=== PATIENT | female | born 1980 | race African-American/Black ===

== ENCOUNTER 2017-06-26 20:58 | Emergency (ER) | payer BC ==
--- NOTE | 2017-06-26 23:29 | RADIOLOGY REPORT (SQ) ---
EXAM DESCRIPTION: CHEST PA/LAT COMPLETED DATE/TIME: 06/26/2017 11:23 pm REASON FOR STUDY: right sided chest pain COMPARISON: 07/05/2014. EXAM PARAMETERS: NUMBER OF VIEWS: two views TECHNIQUE: Digital Frontal and Lateral radiographic views of the chest acquired. RADIATION DOSE: NA LIMITATIONS: none FINDINGS: LUNGS AND PLEURA: No opacities, masses or pneumothorax. No pleural effusion. MEDIASTINUM AND HILAR STRUCTURES: No masses or contour abnormalities. HEART AND VASCULAR STRUCTURES: Heart normal size. No evidence for failure. BONES: No acute findings. HARDWARE: None in the chest. OTHER: No other significant finding. IMPRESSION: NO SIGNIFICANT RADIOGRAPHIC FINDING IN THE CHEST. TECHNICAL DOCUMENTATION: JOB ID: [id number] [employer]- All Rights Reserved
--- NOTE | 2017-06-27 00:21 | ER Document Report ---
ED General - General Chief Complaint: Shoulder Pain Stated Complaint: SHOULDER PAIN Time Seen by Provider: 06/26/17 22:59 Mode of Arrival: Ambulatory Information source: Patient Notes: Patient is a 37-year-old black female comes in emergency room complaining of right shoulder pain. Also complaining of right anterior chest pain. Patient states that she started with some pain in her right shoulder for 5 days ago. Patient states that on Monday she started having some right arm pain she went to sleep and woke up right arm down to her fingers was swollen and painful. She has some anterior right-sided shoulder pain as well. Monday she went to anglican and friend apply hot compresses and she went home took Aleve and ibuprofen and went to bed when she woke up the pain was gone and the swelling was down. Patient also relates a story that her mother at age 52 with an [place]. 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 Patient does not know what her cholesterols. TRAVEL OUTSIDE OF THE [place] IN LAST 30 DAYS: No - HPI Patient complains to provider of: Right shoulder pain, right arm swelling and pain Onset: Other - 2 days ago increasing discomfort yesterday. Onset/Duration: Gradual, Better Quality of pain: Cramping, Throbbing Severity: Moderate Pain Level: 3 Associated symptoms: denies: None, Allergy/hay fever, Body/muscle aches, Chest pain, Chills, Nonproductive cough, Productive cough, Diarrhea, Drooling, Earache , Fever, Headache, Hoarseness, Hurts to breath, Leg swelling, Nausea, Vomiting, Rhinnorhea, Sinus pain/drainage, Shortness of breath, Slow to respond, Sore throat, Sweating, Weakness, Other Exacerbated by: Other - Nothing Relieved by: Other - Heat Similar symptoms previously: Yes Recently seen / treated by doctor: No - Related Data Allergies/Adverse Reactions: acetaminophen [From NyQuil] Allergy (Intermediate, Verified 06/26/17 21:01) brompheniramine maleate [From DayQuil Allergy 12-HR] Allergy (Intermediate, Verified 06/26/17 21:01) dextromethorphan HBr [From NyQuil] Allergy (Intermediate, Verified 06/26/17 21: 01) doxylamine [From NyQuil] Allergy (Intermediate, Verified 06/26/17 21:01) ibuprofen [Ibuprofen] Allergy (Intermediate, Verified 06/26/17 21:01) phenylpropanolamine HCl [From DayQuil Allergy 12-HR] Allergy (Intermediate, Verified 06/26/17 21:01) pseudoephedrine HCl [From NyQuil] Allergy (Intermediate, Verified 06/26/17 21:01 ) Past Medical History - General Information source: Patient - Social History Smoking Status: Former Smoker Cigarette use (# per day): No Chew tobacco use (# tins/day): No Smoking Education Provided: No Frequency of alcohol use: None Drug Abuse: None 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 Lives with: Family Family History: Reviewed & Not Pertinent, Arthritis, CAD, Hyperlipidemia, Hypertension, Malignancy Neurological Medical History: Reports: Hx Migraine Endocrine Medical History: Reports: Hx Hyperthyroidism Musculoskeltal Medical History: Reports Hx Musculoskeletal Trauma Past Surgical History: Reports: Hx Section - x3, Hx Tonsillectomy, Hx Tubal Ligation - Bilateral - Immunizations Immunizations up to date: No Hx Diphtheria, Pertussis, Tetanus Vaccination: No Review of Systems - Review of Systems Constitutional: No symptoms reported EENT: No symptoms reported Cardiovascular: Chest pain Respiratory: No symptoms reported Gastrointestinal: No symptoms reported Genitourinary: No symptoms reported Female Genitourinary: No symptoms reported Musculoskeletal: Joint pain, Joint swelling, Muscle stiffness Skin: No symptoms reported Hematologic/Lymphatic: No symptoms reported Neurological/Psychological: No symptoms reported -: Yes All other systems reviewed and negative Physical Exam - Vital signs Vitals: Temp Pulse Resp BP Pulse Ox 98.3 F 72 18 141/65 H 97 06/26/17 21:07 06/26/17 21:07 06/26/17 21:07 06/26/17 21:07 06/26/17 21:07 Interpretation: Hypertensive - General General appearance: Appears well, Alert - HEENT Head: Normocephalic, Atraumatic Eyes: Normal Nasal: Normal Mouth/Lips: Normal Mucous membranes: Normal Pharynx: Normal Neck: Normal - Respiratory Respiratory status: No respiratory distress Chest status: Nontender Breath sounds: Normal. No: Decreased air movement, Nonproductive cough, Productive cough, Rales, Rhonchi, Stridor, Wheezing, Other Chest palpation: Normal. No: Flail segment, [place] frothy sputum, Purulent sputum , Subcutaneous emphysema, Sucking chest wound, Tender, Ecchymosis, Wounds, Other - Cardiovascular Rhythm: Regular Heart sounds: Normal auscultation Murmur: No - Abdominal Inspection: Normal Distension: No distension Bowel sounds: Normal Tenderness: Nontender Organomegaly: No organomegaly - Extremities General lower extremity: Normal inspection, Normal ROM Shoulder: Tender, Other - Examination patient's right shoulder show some mildly reproducible tenderness around the rotator cuff area. There is little limited are not barely noticeable reduction in strength with against resistance in all directions. There is no overt swelling edema noted to the arm forearm or fingers at this time. Patient has good pulses distally at the ulnar radius good cap refill in the nailbeds of the right hand. She also has good brachial pulse. Arm: Normal Elbow: Normal Forearm: Normal Wrist: Normal Hand: Normal - Neurological Neuro grossly intact: Yes Cognition: Normal Orientation: AAOx4 [place] Coma Scale Eye Opening: Spontaneous [place] Coma Scale Verbal: Oriented [place] Coma Scale Motor: Obeys Commands [place] Coma Scale Total: 15 Speech: Normal - Skin Skin Temperature: Warm Skin Moisture: Dry Skin Color: Normal, [place] Course - Vital Signs Vital signs: Temp Pulse Resp BP Pulse Ox 98.3 F 72 18 141/65 H 97 06/26/17 21:07 06/26/17 21:07 06/26/17 21:07 06/26/17 21:07 06/26/17 21:07 - Laboratory Result Diagrams: 06/27/17 00:10 06/27/17 00:10 Laboratory results interpreted by me: 06/27/17 00:10 Hgb 9.6 L Hct 30.1 L MCV 74 L MCH 23.7 L MCHC 31.8 L RDW 16.7 H - Diagnostic Test Radiology reviewed: Reports reviewed - X-rays were negative of the chest. - EKG Interpretation by Me EKG shows normal: Sinus rhythm Rate: Normal Rhythm: NSR - Transfer of Care Notes: 06/27/17 01:36 Patient stay was totally uneventful. I have had a long discussion with patient about needing follow-up outpatient especially given the fact her father had a heart attack at an early age. At this time she is presenting with really atypical cardiac presentation this was more for a make sure type of a workup that I done tonight. I think patient really strained her right arm or shoulder and over the course of the last few days and not sure what the swelling was but her d-dimer was definitely negative. 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 Anyhow at this point I talked her about [facility] and how they operate in that if she does not have insurance this may be an opportunity for her to get medical care. Discharge - Discharge Clinical Impression: Atypical chest pain Right shoulder strain Qualifiers: Encounter type: initial encounter Qualified Code(s): S46.911A - Strain of unspecified muscle, fascia and tendon at shoulder and upper arm level, right arm , initial encounter Condition: Good Disposition: HOME, SELF-CARE Additional Instructions: Chest Pain of Unclear Cause The exact cause of your chest pain isn't clear. Fortunately, there is no evidence of a dangerous medical condition. Further testing may be required to find the source of the pain. Most often, we find that this pain is coming from the chest wall -- the muscles or rib joints in the chest. But chest pain can come from the lung and lung lining, the esophagus, the heart valves or heart lining, and even the stomach or gallbladder. Rest. Eat lightly until the pain is gone. We may prescribe medicine for pain and inflammation. You should call the physician immediately if the pain radiates to the shoulder, jaw or arms; if you start to run a fever or develop a cough; or if you develop shortness of breath, or other new or alarming symptoms. Shoulder Injury You have injured your shoulder. This usually results from stretching or tearing of the tendons during trauma. Time and protection are required in order to heal properly. Many injuries are quite disabling, and should be taken seriously. Initial treatment includes cold packs and a sling to rest the shoulder. The physician has assessed the seriousness of your injury, and has outlined a treatment plan. Understand that this treatment may change, depending on how you progress. If a re-examination was recommended, it is important that you follow up as instructed. Some shoulder injuries (such as partial tear of the rotator cuff) are only suspected after you've failed to improve. Call us if there's severe pain, numbness, or loss of function. As we discussed it is highly important that you establish with a medical doctor for the following. Should you have any concerns or problems if the discomfort returns and or radiates to anywhere else return to ER for a recheck again. Forms: Elevated Blood Pressure, Return to Work
[2017-06-27 00:31] LABS: ABSOLUTE BASOPHILS # (AUTO) 0.1 10^3/uL (0.0-0.2); ABSOLUTE EOSINOPHILS # (AUTO) 0.3 10^3/uL (0.0-0.6); ABSOLUTE LYMPHOCYTES (AUTO) 2.2 10^3/uL (0.5-4.7); ABSOLUTE MONOCYTES (AUTO) 0.4 10^3/uL (0.1-1.4); ABSOLUTE NEUT (AUTO) 3.1 10^3/uL (1.7-8.2); BASOPHILS % (AUTO) 1.3 % (0-2); EOSINOPHILS % (AUTO) 4.7 % (0-6); HEMATOCRIT 30.1 % (36.0-47.0); HEMOGLOBIN 9.6 g/dL (12.0-15.5); HGB HCT DIFFERENCE -1.3; LYMPHOCYTES % (AUTO) 36.1 % (13-45); MEAN CORPUSCULAR HEMOGLOBIN 23.7 pg (27.0-33.4); MEAN CORPUSCULAR HGB CONC 31.8 g/dL (32.0-36.0); MEAN CORPUSCULAR VOLUME 74 fl (80-97); MONOCYTES % (AUTO) 6.8 % (3-13); RED BLOOD COUNT 4.05 10^6/uL (3.72-5.28); RED CELL DISTRIBUTION WIDTH 16.7 % (11.5-14.0); SEGMENTED NEUTROPHILS % (AUTO) 51.1 % (42-78)
[2017-06-27 00:49] LABS: ALANINE AMINOTRANSFERASE 36 U/L (9-52); ALBUMIN 4.2 g/dL (3.5-5.0); ALKALINE PHOSPHATASE 58 U/L (38-126); ANION GAP 10 (5-19); ASPARTATE AMINO TRANSFERASE 21 U/L (14-36); BILIRUBIN,DIRECT 0.3 mg/dL (0.0-0.4); BILIRUBIN,TOTAL 0.3 mg/dL (0.2-1.3); BLOOD UREA NITROGEN 16 mg/dL (7-20); CALCIUM 9.2 mg/dL (8.4-10.2); CARBON DIOXIDE 25 mmol/L (22-30); CHLORIDE 103 mmol/L (98-107); CREATININE RESULT 0.78 mg/dL (0.52-1.25); GLUCOSE 97 mg/dL (75-110); SODIUM 138.2 mmol/L (137-145); TOTAL PROTEIN 7.4 g/dL (6.3-8.2)
[2017-06-27 01:57] VITALS: BP 139/80
--- NOTE | 2017-06-27 12:47 | EKG REPORT ---
SEVERITY:- NORMAL ECG - SINUS RHYTHM : Confirmed by: Zahra Zaragoza 27-Jun-2017 12:46:55
== END 2017-06-27 02:00 | disposition home or self-care (01) ==
LOC: ER 20:58
DX: S46.911A Strain of unspecified muscle, fascia and tendon at shoulder and upper arm level, right arm, initial encounter (principal); R07.89 Other chest pain; X58.XXXA Exposure to other specified factors, initial encounter; Z98.51 Tubal ligation status; Z88.6 Allergy status to analgesic agent
CPT/HCPCS: 36415; 71020; 80053; 84484; 85025; 85379; 93005; 93010; 99285

== ENCOUNTER 2018-06-18 15:08 | Emergency (ER) | payer BC ==
[2018-06-18] MEDS ORDERED: ACETAMINOPHEN 325 MG TABLET PO ONE (16:29)
[2018-06-18] MEDS ORDERED: ONDANSETRON 4 MG TAB.RAPDIS PO ONE (16:30)
--- NOTE | 2018-06-18 16:37 | ER Document Report ---
ED General - General Chief Complaint: Chest Pain Stated Complaint: chest pain Time Seen by Provider: 06/18/18 16:11 Notes: Patient is a 38-year-old female who comes emergency department for chief complaint of chest pain. She states that she has been having intermittent mild chest pain in the middle of her chest for the past several days, she actually has had this frequently in the past, she states that over the past few days she has had lack of sleep, poor diet, and she thinks this is related. She has also been having intermittent mild headaches. She denies nausea or vomiting, fever or chills, shortness of breath, cough. She denies any daily medications. She is a former smoker. She states her mom had a heart attack in her 50s and as result she wants to be checked out. TRAVEL OUTSIDE OF THE [place] IN LAST 30 DAYS: No - Related Data Allergies/Adverse Reactions: acetaminophen [From NyQuil] Allergy (Intermediate, Verified 06/26/17 21:01) brompheniramine maleate [From DayQuil Allergy 12-HR] Allergy (Intermediate, Verified 06/26/17 21:01) dextromethorphan HBr [From NyQuil] Allergy (Intermediate, Verified 06/26/17 21: 01) doxylamine [From NyQuil] Allergy (Intermediate, Verified 06/26/17 21:01) ibuprofen [Ibuprofen] Allergy (Intermediate, Verified 06/26/17 21:01) phenylpropanolamine HCl [From DayQuil Allergy 12-HR] Allergy (Intermediate, Verified 06/26/17 21:01) pseudoephedrine HCl [From NyQuil] Allergy (Intermediate, Verified 06/26/17 21:01 ) Past Medical History - General Information source: Patient - Social History Smoking Status: Former Smoker Frequency of alcohol use: weekends Drug Abuse: None Lives with: Family Family History: Reviewed & Not Pertinent, Arthritis, CAD, Hyperlipidemia, Hypertension, Malignancy Patient has suicidal ideation: No Patient has homicidal ideation: No Neurological Medical History: Reports: Hx Migraine Endocrine Medical History: Reports: Hx Hyperthyroidism Renal/ Medical History: Denies: Hx Peritoneal Dialysis Musculoskeletal Medical History: Reports Hx Musculoskeletal Trauma Past Surgical History: Reports: Hx Section - x3, Hx Tonsillectomy, Hx Tubal Ligation - Immunizations Immunizations up to date: No Hx Diphtheria, Pertussis, Tetanus Vaccination: No Review of Systems - Review of Systems Constitutional: See HPI EENT: No symptoms reported Cardiovascular: See HPI Respiratory: No symptoms reported Gastrointestinal: No symptoms reported Genitourinary: No symptoms reported Female Genitourinary: No symptoms reported Musculoskeletal: No symptoms reported Skin: No symptoms reported Hematologic/Lymphatic: No symptoms reported Neurological/Psychological: No symptoms reported Physical Exam - Vital signs Vitals: Temp Pulse Resp BP Pulse Ox 98.3 F 67 12 123/70 100 06/18/18 15:33 06/18/18 15:33 06/18/18 15:33 06/18/18 15:33 06/18/18 15:33 - Notes Notes: GENERAL: Alert, interacts well. No acute distress. HEAD: Normocephalic, atraumatic. EYES: Pupils equal, round, and reactive to light. Extraocular movements intact. ENT: Oral mucosa moist, tongue midline. Oropharynx unremarkable. Airway patent. Nares patent, no nasal septal hematoma, TM's intact. NECK: Full range of motion. Supple. Trachea midline. LUNGS: Clear to auscultation bilaterally, no wheezes, rales, or rhonchi. No respiratory distress. HEART: Regular rate and rhythm. No murmur ABDOMEN: Soft, non-tender. Non-distended. Bowel sounds present in all 4 quadrants. GENITOURINARY: Deferred EXTREMITIES: Moves all 4 extremities spontaneously. No edema, normal radial and dorsalis pedis pulses bilaterally. No cyanosis. BACK: no cervical, thoracic, lumbar midline tenderness. No saddle anesthesia, normal distal neurovascular exam. NEUROLOGICAL: Alert and oriented x3. Normal speech. [cranial nerves II through XII grossly intact]. PSYCH: Normal affect, normal mood. SKIN: Warm, dry, normal turgor. No rashes or lesions noted. Course - Re-evaluation Re-evalutation: Patient declines aspirin, states that she decided she would never take this because her mom had a severe allergy, she has never personally taken it but she again declines. EKG sinus rhythm no T wave inversions or ST segment changes in consecutive leads. Chest x-ray is unremarkable. CBC shows chronic microcytic anemia which is similar to prior, otherwise unremarkable. Chemistry unremarkable. HCG is negative. Troponin is negative despite symptoms going on for several days. Patient attributes her symptoms to stress, lack of sleep, eating regularly, not drink enough fluids. No current chest pain on my evaluation. She has had similar symptoms for a long time. Discussed different options. Heart score is less than 4, patient will be discharged with work-release if she can rest, cardiology follow-up. Patient states understanding and agreement with this plan , states understanding of return precautions. - Vital Signs Vital signs: Temp Pulse Resp BP Pulse Ox 98.7 F 62 18 134/67 H 100 06/18/18 18:36 06/18/18 18:36 06/18/18 18:36 06/18/18 18:36 06/18/18 18:36 - Laboratory Result Diagrams: 06/18/18 16:50 06/18/18 16:50 Laboratory results interpreted by me: 06/18/18 16:50 Hgb 9.5 L Hct 30.0 L MCV 73 L MCH 22.9 L MCHC 31.6 L RDW 17.4 H Discharge - Discharge Clinical Impression: Chest pain Qualifiers: Chest pain type: unspecified Qualified Code(s): R07.9 - Chest pain, unspecified Condition: Stable Disposition: HOME, SELF-CARE Additional Instructions: The exact cause of your chest pain is uncertain. Your workup does not show any concerning abnormalities at this time other than slowly worsening anemia. I recommend that you resume your [place] vitamins. You can also increase iron in your diet. Improve rest and hydration. Follow-up with the cardiology referral for additional evaluation and management. Return for any concerning symptoms including severe pain, passing out, difficulty breathing, fever, or any other concerning or worsening symptoms. Forms: Return to Work Referrals: STACY PALACIO MD [ACTIVE STAFF] - Follow up as needed
--- NOTE | 2018-06-18 16:49 | RADIOLOGY REPORT (SQ) ---
EXAM DESCRIPTION: CHEST SINGLE VIEW COMPLETED DATE/TIME: 06/18/2018 4:40 pm REASON FOR STUDY: chest pain COMPARISON: 06/26/2017 EXAM PARAMETERS: NUMBER OF VIEWS: One view. TECHNIQUE: Single frontal radiographic view of the chest acquired. RADIATION DOSE: NA LIMITATIONS: None. FINDINGS: LUNGS AND PLEURA: No opacities, masses or pneumothorax. No pleural effusion. MEDIASTINUM AND HILAR STRUCTURES: No masses. Contour normal. HEART AND VASCULAR STRUCTURES: Heart normal in size. Normal vasculature. BONES: No acute findings. HARDWARE: None in the chest. OTHER: No other significant finding. IMPRESSION: 1. No significant interval changes since the prior examination dated 06/26/2017. No [place] findings. TECHNICAL DOCUMENTATION: JOB ID: [id number] [employer]- All Rights Reserved Reading location - IP/workstation name: [email or web address]
[2018-06-18 17:09] LABS: ABSOLUTE BASOPHILS # (AUTO) 0.1 10^3/uL (0.0-0.2); ABSOLUTE EOSINOPHILS # (AUTO) 0.3 10^3/uL (0.0-0.6); ABSOLUTE MONOCYTES (AUTO) 0.5 10^3/uL (0.1-1.4); ABSOLUTE NEUT (AUTO) 5.5 10^3/uL (1.7-8.2); BASOPHILS % (AUTO) 0.9 % (0-2); EOSINOPHILS % (AUTO) 3.8 % (0-6); HEMOGLOBIN 9.5 g/dL (12.0-15.5); MEAN CORPUSCULAR HEMOGLOBIN 22.9 pg (27.0-33.4); MEAN CORPUSCULAR HGB CONC 31.6 g/dL (32.0-36.0); MEAN CORPUSCULAR VOLUME 73 fl (80-97); MONOCYTES % (AUTO) 5.9 % (3-13); PLATELET COUNT 340 10^3/uL (150-450); RED BLOOD COUNT 4.14 10^6/uL (3.72-5.28); RED CELL DISTRIBUTION WIDTH 17.4 % (11.5-14.0); SEGMENTED NEUTROPHILS % (AUTO) 65.4 % (42-78); TOTAL CELLS COUNTED % (AUTO) 100 %; WHITE BLOOD COUNT 8.4 10^3/uL (4.0-10.5)
[2018-06-18 17:25] LABS: ALANINE AMINOTRANSFERASE 16 U/L (9-52); ALBUMIN 4.1 g/dL (3.5-5.0); ALKALINE PHOSPHATASE 64 U/L (38-126); ANION GAP 12 (5-19); ASPARTATE AMINO TRANSFERASE 21 U/L (14-36); BILIRUBIN,DIRECT 0.2 mg/dL (0.0-0.4); BILIRUBIN,TOTAL 0.2 mg/dL (0.2-1.3); BLOOD UREA NITROGEN 17 mg/dL (7-20); CALCIUM 9.1 mg/dL (8.4-10.2); CARBON DIOXIDE 27 mmol/L (22-30); CHLORIDE 102 mmol/L (98-107); GLUCOSE 87 mg/dL (75-110); POTASSIUM 3.9 mmol/L (3.6-5.0); SODIUM 140.9 mmol/L (137-145); TOTAL PROTEIN 7.3 g/dL (6.3-8.2)
--- NOTE | 2018-06-18 18:38 | EKG REPORT ---
SEVERITY:- NORMAL ECG - SINUS RHYTHM : Confirmed by: Zahra Zaragoza 18-Jun-2018 18:36:49
[2018-06-18 18:40] VITALS: BP 134/67
== END 2018-06-18 18:38 | disposition home or self-care (01) ==
LOC: ER 15:08
DX: R07.9 Chest pain, unspecified (principal); R51 Headache; Z87.891 Personal history of nicotine dependence
CPT/HCPCS: 93005; 99285; 36415; 84703; 85025; 80053; 84484; 71045; 93010; S0119

== ENCOUNTER 2018-08-07 20:58 | Emergency (ER) | payer BC ==
[2018-08-07] MEDS ORDERED: ASPIRIN 81 MG TABLET, CHEWABLE PO ONE (21:30)
--- NOTE | 2018-08-07 22:01 | RADIOLOGY REPORT (SQ) ---
EXAM DESCRIPTION: XR CHEST 1 VIEW COMPLETED DATE/TME: 08/07/2018 21:30 CLINICAL HISTORY: 38 years, Female, CP COMPARISON: 06/18/2018 chest x-ray NUMBER OF VIEWS: 1 TECHNIQUE: Chest LIMITATIONS: None. FINDINGS: Heart size is normal. Lungs are clear. No pneumothorax IMPRESSION: Negative chest copyright 2010 [employer]- All Rights Reserved
[2018-08-07 22:15] LABS: ABSOLUTE BASOPHILS # (AUTO) 0.1 10^3/uL (0.0-0.2); ABSOLUTE EOSINOPHILS # (AUTO) 0.4 10^3/uL (0.0-0.6); ABSOLUTE LYMPHOCYTES (AUTO) 2.1 10^3/uL (0.5-4.7); ABSOLUTE MONOCYTES (AUTO) 0.5 10^3/uL (0.1-1.4); ABSOLUTE NEUT (AUTO) 4.5 10^3/uL (1.7-8.2); BASOPHILS % (AUTO) 1.8 % (0-2); EOSINOPHILS % (AUTO) 4.7 % (0-6); HEMATOCRIT 32.9 % (36.0-47.0); HEMOGLOBIN 10.5 g/dL (12.0-15.5); LYMPHOCYTES % (AUTO) 28.1 % (13-45); MEAN CORPUSCULAR HEMOGLOBIN 23.9 pg (27.0-33.4); MEAN CORPUSCULAR VOLUME 75 fl (80-97); MONOCYTES % (AUTO) 6.7 % (3-13); PLATELET COUNT 327 10^3/uL (150-450); RED CELL DISTRIBUTION WIDTH 18.1 % (11.5-14.0); SEGMENTED NEUTROPHILS % (AUTO) 58.7 % (42-78); TOTAL CELLS COUNTED % (AUTO) 100 %; WHITE BLOOD COUNT 7.6 10^3/uL (4.0-10.5)
[2018-08-07 22:40] LABS: ALANINE AMINOTRANSFERASE 29 U/L (9-52); ALBUMIN 4.4 g/dL (3.5-5.0); ALKALINE PHOSPHATASE 67 U/L (38-126); ANION GAP 5 (5-19); ASPARTATE AMINO TRANSFERASE 26 U/L (14-36); BILIRUBIN,DIRECT 0.1 mg/dL (0.0-0.4); BILIRUBIN,TOTAL 0.1 mg/dL (0.2-1.3); BLOOD UREA NITROGEN 16 mg/dL (7-20); CALCIUM 9.4 mg/dL (8.4-10.2); CARBON DIOXIDE 28 mmol/L (22-30); CHLORIDE 104 mmol/L (98-107); CREATINE KINASE 171 U/L (30-135); GLUCOSE 87 mg/dL (75-110); POTASSIUM 4.1 mmol/L (3.6-5.0); SODIUM 137.1 mmol/L (137-145); TOTAL PROTEIN 7.3 g/dL (6.3-8.2)
[2018-08-07 22:56] LABS: CREATINE KINASE MB 1.23 ng/mL (<4.55)
[2018-08-07 23:04] LABS: TROPONIN I < 0.012 ng/mL
[2018-08-08] MEDS ORDERED: MORPHINE SULFATE 10 MG/ML INJ IV ONE ×2 (00:03→02:27)
[2018-08-08] MEDS ORDERED: ONDANSETRON HCL INJ/PF 4 MG/2 ML SDV IV ONE (00:04)
--- NOTE | 2018-08-08 00:08 | ER Document Report ---
ED General - General Chief Complaint: Chest Pain Stated Complaint: CHEST PAIN Time Seen by Provider: 08/07/18 23:40 Primary Care Provider: [facility] [NO LOCAL MD] - Follow up in 3-5 days Mode of Arrival: Ambulatory Information source: Patient, Relative, [facility] Records Notes: 38-year-old female with no reported past medical history presents with complaint of chest pain that started 7 hours prior to arrival while the patient was at work. Patient describes the pain is constant, stabbing. Patient states pain is worse with movement of her arm, movement of her neck. She denies any chest trauma. She has had prior similar symptoms for many years but states they have never been able to figure out what it is. Patient denies any associated lightheadedness, diaphoresis, nausea, vomiting, recent illnesses including cough congestion. Patient denies history of PE, DVT. She does report that her mother from a heart attack at the age of 52. TRAVEL OUTSIDE OF THE [place] IN LAST 30 DAYS: No - HPI Onset: This afternoon Onset/Duration: Gradual, Persistent, Worse Quality of pain: Stabbing Severity: Moderate Associated symptoms: Chest pain. denies: Nonproductive cough, Productive cough, Diarrhea, Fever, Headache, Leg swelling, Nausea, Vomiting, Shortness of breath, Sweating, Weakness Exacerbated by: Movement Relieved by: Denies Similar symptoms previously: Yes Recently seen / treated by doctor: No - Related Data Allergies/Adverse Reactions: acetaminophen [From NyQuil] Allergy (Intermediate, Verified 06/26/17 21:01) brompheniramine maleate [From DayQuil Allergy 12-HR] Allergy (Intermediate, Verified 06/26/17 21:01) dextromethorphan HBr [From NyQuil] Allergy (Intermediate, Verified 06/26/17 21:01) doxylamine [From NyQuil] Allergy (Intermediate, Verified 06/26/17 21:01) ibuprofen [Ibuprofen] Allergy (Intermediate, Verified 06/26/17 21:01) phenylpropanolamine HCl [From DayQuil Allergy 12-HR] Allergy (Intermediate, Verified 06/26/17 21:01) pseudoephedrine HCl [From NyQuil] Allergy (Intermediate, Verified 06/26/17 21:01) Past Medical History - General Information source: Patient - Social History Smoking Status: Never Smoker Frequency of alcohol use: Occasional Drug Abuse: None Lives with: Family Family History: Reviewed & Not Pertinent, Arthritis, CAD, Hyperlipidemia, Hypertension, Malignancy Patient has suicidal ideation: No Patient has homicidal ideation: No - Past Medical History Cardiac Medical History: Reports: Hx Hypertension - high blood pressure while Neurological Medical History: Reports: Hx Migraine Endocrine Medical History: Reports: Hx Hyperthyroidism Renal/ Medical History: Denies: Hx Peritoneal Dialysis Musculoskeletal Medical History: Reports Hx Musculoskeletal Trauma Past Surgical History: Reports: Hx Section - x3, Hx Tonsillectomy, Hx Tubal Ligation - Immunizations Immunizations up to date: No Hx Diphtheria, Pertussis, Tetanus Vaccination: No Review of Systems - Review of Systems Notes: REVIEW OF SYSTEMS: CONSTITUTIONAL : Denies fever, chills, or sweats. Denies recent illness. Denies weight loss, recent hospitalizations. EENT: Denies visual changes, eye pain. Denies sore throat, oral lesions, difficulty swallowing. CARDIOVASCULAR: Denies palpitations. Denies lower extremity edema. RESPIRATORY: Denies cough. Denies shortness of breath, wheezing. GASTROINTESTINAL: Denies abdominal pain or distention. Denies nausea, vomiting, or diarrhea. Denies blood in vomitus, stools, or per rectum. Denies black, tarry stools. Denies constipation. GENITOURINARY: Denies difficulty urinating, painful urination, frequency, blood in urine, or vaginal discharge. MUSCULOSKELETAL: Denies back or neck pain or stiffness. Denies joint pain or swelling. SKIN: Denies rash, lesions or sores. HEMATOLOGIC : Denies easy bruising or bleeding. LYMPHATIC: Denies swollen glands. NEUROLOGICAL: Denies confusion or altered mental status. Denies loss of consciousness. Denies dizziness or lightheadedness. Denies headache. Denies weakness or paralysis. Denies problems difficulty with ambulation, slurred speech. Denies sensory loss, numbness, or tingling. Denies seizures. PSYCHIATRIC: Denies anxiety or stress. Denies depression, suicidal ideation, or homicidal ideation. Denies visual or auditory hallucinations. Physical Exam - Vital signs Vitals: Temp Pulse Resp BP Pulse Ox 98.6 F 72 20 136/69 H 100 08/07/18 21:52 08/07/18 21:52 08/07/18 21:52 08/07/18 21:52 08/07/18 21:52 - Notes Notes: PHYSICAL EXAMINATION: GENERAL: Well-appearing, well-nourished and in no acute distress. HEAD: Atraumatic, normocephalic. EYES: Pupils equal round and reactive to light, extraocular movements intact, conjunctiva are normal. ENT: Nares patent, oropharynx clear without exudates. Moist mucous membranes. NECK: Normal range of motion, supple without lymphadenopathy LUNGS: Breath sounds clear to auscultation bilaterally and equal. No wheezes rales or rhonchi. HEART: Regular rate and rhythm without murmurs ABDOMEN: Soft, nontender, nondistended abdomen. No guarding, no rebound. No masses appreciated. Female : deferred Musculoskeletal: Normal range of motion, no pitting or edema. No cyanosis. NEUROLOGICAL: Cranial nerves grossly intact. Normal speech, normal gait. Normal sensory, motor exams PSYCH: Normal mood, normal affect. SKIN: Warm, Dry, normal turgor, no rashes or lesions noted. Course - Re-evaluation Re-evalutation: Temp Pulse Resp BP Pulse Ox 98.6 F 72 20 124/79 100 08/07/18 21:52 08/07/18 21:52 08/07/18 23:01 08/07/18 23:01 08/07/18 23:01 Laboratory 08/07/18 08/07/18 08/07/18 22:03 22:03 22:03 WBC 7.6 RBC 4.40 Hgb 10.5 L Hct 32.9 L MCV 75 L MCH 23.9 L MCHC 32.0 RDW 18.1 H Plt Count 327 Seg Neutrophils % 58.7 Lymphocytes % 28.1 Monocytes % 6.7 Eosinophils % 4.7 Basophils % 1.8 Absolute Neutrophils 4.5 Absolute Lymphocytes 2.1 Absolute Monocytes 0.5 Absolute Eosinophils 0.4 Absolute Basophils 0.1 Sodium 137.1 Potassium 4.1 Chloride 104 Carbon Dioxide 28 Anion Gap 5 BUN 16 Creatinine 0.77 Est GFR ( Amer) > 60 Est GFR (Non-Af Amer) > 60 Glucose 87 Calcium 9.4 Total Bilirubin 0.1 L Direct Bilirubin 0.1 Neonat Total Bilirubin Not Reportable Neonat Direct Bilirubin Not Reportable Neonat Indirect Bili Not Reportable AST 26 ALT 29 Alkaline Phosphatase 67 Creatine Kinase 171 H CK-MB (CK-2) Troponin I Total Protein 7.3 Albumin 4.4 Serum HCG, Qual NEGATIVE 08/07/18 08/08/18 22:03 01:15 WBC RBC Hgb Hct MCV MCH MCHC RDW Plt Count Seg Neutrophils % Lymphocytes % Monocytes % Eosinophils % Basophils % Absolute Neutrophils Absolute Lymphocytes Absolute Monocytes Absolute Eosinophils Absolute Basophils Sodium Potassium Chloride Carbon Dioxide Anion Gap BUN Creatinine Est GFR ( Amer) Est GFR (Non-Af Amer) Glucose Calcium Total Bilirubin Direct Bilirubin Neonat Total Bilirubin Neonat Direct Bilirubin Neonat Indirect Bili AST ALT Alkaline Phosphatase Creatine Kinase CK-MB (CK-2) 1.23 Troponin I < 0.012 < 0.012 Total Protein Albumin Serum HCG, Qual Chest X-Ray 08/07/18 21:30 IMPRESSION: Negative chest copyright 2011 [employer]- All Rights Reserved 08/08/18 00:07 38-year-old female presents with 7 hours of substernal chest pain that she describes as stabbing. Vital signs reviewed upon arrival and within normal li mits. Patient does not appear toxic or dehydrated. She is in no acute distress. Previous medical records and nursing notes reviewed. Patient was placed on night monitor and EKG was obtained which showed the patient to be in normal sinus rhythm at a rate of 75. Patient has a normal QRS and QTC of 76 and 411. CBC, CMP, cardiac enzymes including delta troponin are within normal limits. Chest x-ray shows no acute process. Patient did receive morphine, Zofran and on reevaluation reports improvement of pain. Patient is PERC negative. Patient was not administered aspirin due to her report that she is concerned that she is allergic to aspirin since her mother was allergic to aspirin. I did explain to her the value of taking aspirin but she continues to decline. HEART Score: History-0 ECG-0 Age-0 Risk Factors-1 Troponin-0 Total: 1 If HEART score is = 3 AND both troponin measurements are normal, the 30 day risk of a major adverse cardiac event (all-cause mortality, myocardial infarction or need for coronary revascularization) is < 1% (Sensitivity 100%, NPV 100%). Chest pain in a patient without evidence of cardiac or other serious etiology on workup today. I discussed with patient that, based on their age, risk factors and emergency department testing today, the likelihood that their symptoms are related to a heart attack is very low (estimated risk of heart attack or over the next 30 days of less than 1%). The patient demonstrates decision making capacity and has verbalized an understanding of these risks to me. Based on this, the patient has chosen to follow-up as an outpatient. Usual chest pain return precautions reviewed. The patient states understanding and agreement with this plan. Patient was evaluated and treated as appropriate for the patient's presenting symptoms and complaint, with consideration of any critical or life threatening conditions that may be associated with their obtained history and exam as noted above. All results were discussed with patient Patient provided the opportunity to ask questions, and express concerns. Patient was educated on treatments based on their presumed diagnosis as noted above. At this time we will discharge the patient with return precautions and follow-up recommendations. Verbal discharge instructions given a the bedside. Medication warnings reviewed. Patient is in agreement with this plan and has verbalized understanding of return precautions. After careful consideration I feel that that patient can be safely discharged from the emergency department, they were advised to followup with a primary care physician in 2-3 days. Dictation on this chart was performed using voice recognition software and may result in unintended grammatical, spelling, syntax or errors. 08/08/18 02:45 08/08/18 02:47 08/08/18 02:47 - Vital Signs Vital signs: Temp Pulse Resp BP Pulse Ox 98.6 F 72 18 137/80 H 99 08/07/18 21:52 08/07/18 21:52 08/08/18 02:01 08/08/18 02:01 08/08/18 02:01 - Laboratory Result Diagrams: 08/07/18 22:03 08/07/18 22:03 Laboratory results interpreted by me: 08/07/18 08/07/18 22:03 22:03 Hgb 10.5 L Hct 32.9 L MCV 75 L MCH 23.9 L RDW 18.1 H Total Bilirubin 0.1 L Creatine Kinase 171 H - Diagnostic Test Radiology reviewed: Image reviewed, Reports reviewed - EKG Interpretation by Me EKG shows normal: Sinus rhythm Rate: Normal Rhythm: NSR When compared to previous EKG there are: No significant change - QRS 76. QTc 411. No evidence of ST elevation or depression. Discharge - Discharge Clinical Impression: Chest wall pain Chest pain Qualifiers: Chest pain type: unspecified Qualified Code(s): R07.9 - Chest pain, unspecified Condition: Good Disposition: HOME, SELF-CARE Instructions: Chest Pain of Unclear Cause ([facility]), Chest Wall Pain ([facility]) Additional Instructions: You were seen today for chest pain. The exact cause of your pain is unclear. However, based on your cardiac enzyme testing, chest x-ray, and EKG it does not appear that it is from an immediately life-threatening cause at this time. Although your testing here is normal is critical that you follow-up with your [facility] physician for continued evaluation of this chest pain and possible stress testing. I recommended you see your physician within the next 24-48 hours to be evaluated for consideration of a stress test. Please return to emergency department immediately if you have worsening of your chest pain, shortness of breath, vomiting, become unable to exert yourself due to pain or difficulty breathing, you pass out, or have any pain that radiates into your arms, jaw, or back. Please also return if you have any additional symptoms that are concerning to you. Forms: Elevated Blood Pressure, Return to Work [facility]: [facility] [NO [facility]AL MD] - Follow up in 3-5 days
[2018-08-08 02:28] VITALS: BP 137/80
--- NOTE | 2018-08-08 07:29 | EKG REPORT ---
SEVERITY:- NORMAL ECG - SINUS RHYTHM : Confirmed by: Joseline Gupta MD 08-Aug-2018 07:28:46
== END 2018-08-08 02:54 | disposition home or self-care (01) ==
LOC: ER 20:58
DX: R07.89 Other chest pain (principal); R07.9 Chest pain, unspecified; I10 Essential (primary) hypertension
CPT/HCPCS: 93005; 96376; 99285; 96374; 96375; 36415; 82553; 82550; 84703; 85025; 80053; 84484; 71045; 93010; J2270; J2405

== ENCOUNTER 2019-09-23 19:55 | Emergency (ER) | payer BC ==
--- NOTE | 2019-09-23 20:37 | ER Document Report ---
ED Medical Screen (RME) - General Chief Complaint: Chest Pain Stated Complaint: CHEST PAIN Time Seen by Provider: 09/23/19 20:23 Mode of Arrival: Ambulatory Information source: Patient Notes: Otherwise healthy 39-year-old female presenting to the emergency department chief complaint of chest pain. Patient reports chest pain began this morning. Patient reports it feels like a sharp stabbing pain in the middle of her chest. She states pain is worse when she is working or breathing in cold air. She denies any nausea, vomiting, shortness of breath. Heart sounds S1-S2 present, no ectopy noted. Lung sounds clear and equal bilaterally. I have greeted and performed a rapid initial assessment of this patient. A comprehensive ED assessment and evaluation of the patient, analysis of test results and completion of the medical decision making process will be conducted by additional ED providers. I have specifically instructed the patient or family members with the patient to immediately return to any nursing staff should anything change in the patient's condition or with their chief complaint. TRAVEL OUTSIDE OF THE [place] IN LAST 30 DAYS: No - Related Data Allergies/Adverse Reactions: acetaminophen [From NyQuil] Allergy (Intermediate, Verified 09/23/19 20:15) brompheniramine maleate [From DayQuil Allergy 12-HR] Allergy (Intermediate, Verified 09/23/19 20:15) dextromethorphan HBr [From NyQuil] Allergy (Intermediate, Verified 09/23/19 20:15) doxylamine [From NyQuil] Allergy (Intermediate, Verified 09/23/19 20:15) ibuprofen [Ibuprofen] Allergy (Intermediate, Verified 09/23/19 20:15) phenylpropanolamine HCl [From DayQuil Allergy 12-HR] Allergy (Intermediate, Verified 09/23/19 20:15) pseudoephedrine HCl [From NyQuil] Allergy (Intermediate, Verified 09/23/19 20:15) Home Medications: Iron Past Medical History - Social History Chew tobacco use (# tins/day): No Frequency of alcohol use: Rare Drug Abuse: None Family history: CAD - MOTHER HAD SUDDEN CARDIAC @ AGE 51 - Past Medical History Cardiac Medical History: Reports: Hx Hypertension - high blood pressure while Neurological Medical History: Reports: Hx Migraine Endocrine Medical History: Reports: Hx Hyperthyroidism Renal/ Medical History: Denies: Hx Peritoneal Dialysis Musculoskeltal Medical History: Reports Hx Musculoskeletal Trauma Past Surgical History: Reports: Hx Section - x3, Hx Tonsillectomy, Hx Tubal Ligation - Immunizations Immunizations up to date: No Hx Diphtheria, Pertussis, Tetanus Vaccination: No Physical Exam - Vital signs Vitals: Temp Pulse Resp BP Pulse Ox 98.9 F 83 16 121/76 99 09/23/19 20:05 09/23/19 20:05 09/23/19 20:05 09/23/19 20:05 09/23/19 20:05 Course - Vital Signs Vital signs: Temp Pulse Resp BP Pulse Ox 98.9 F 83 16 121/76 99 09/23/19 20:05 09/23/19 20:05 09/23/19 20:05 09/23/19 20:05 09/23/19 20:05
--- NOTE | 2019-09-23 21:11 | RADIOLOGY REPORT (SQ) ---
PA and lateral chest radiograph: 09/23/2019 8:10 PM CDT History: 39-year old patient with chest pain. Comparison: Chest radiograph performed 08/07/2018 Findings: The cardiomediastinal silhouette is normal in size. No pneumothorax is seen. No discrete pleural effusion is apparent. No acute airspace opacities are seen. Impression: No acute airspace opacities are seen.
--- NOTE | 2019-09-23 21:20 | ER Document Report ---
ED Cardiac - General Chief Complaint: Chest Pain Stated Complaint: CHEST PAIN Time Seen by Provider: 09/23/19 20:23 Primary Care Provider: RADHA CABALLERO MD [ACTIVE STAFF] - 09/25/19 Mode of Arrival: Ambulatory Notes: Patient is a 39-year-old female that comes emergency department for chief comp laint of chest pain. She states that this started earlier this morning, she states she will intermittently feel a sharp stabbing pain in the middle the chest. She states that she notices this much more when she is going in and out of cold air, she states that he is doing this constantly at work. When the pain is present it feels like it is harder to take a deep breath but she denies specific shortness of breath. She states she is also starting to get congested and she is wondering if she is getting a chest cold. She denies cough, fever, nausea, vomiting, dizziness, lower extremity swelling, or any other complaints. She has a past medical history of anemia and she takes iron for this, she has had 3 C-sections and a tubal ligation. She states that her mom from cardiac arrest at the age of 51. She has never had testing of her heart. TRAVEL OUTSIDE OF THE [place] IN LAST 30 DAYS: No - Related Data Allergies/Adverse Reactions: acetaminophen [From NyQuil] Allergy (Intermediate, Verified 09/23/19 20:15) brompheniramine maleate [From DayQuil Allergy 12-HR] Allergy (Intermediate, Verified 09/23/19 20:15) dextromethorphan HBr [From NyQuil] Allergy (Intermediate, Verified 09/23/19 20:15) doxylamine [From NyQuil] Allergy (Intermediate, Verified 09/23/19 20:15) ibuprofen [Ibuprofen] Allergy (Intermediate, Verified 09/23/19 20:15) phenylpropanolamine HCl [From DayQuil Allergy 12-HR] Allergy (Intermediate, Verified 09/23/19 20:15) pseudoephedrine HCl [From NyQuil] Allergy (Intermediate, Verified 09/23/19 20:15) Home Medications: Iron Past Medical History - General Information source: Patient - Social History Smoking Status: Never Smoker Chew tobacco use (# tins/day): No Frequency of alcohol use: Rare Drug Abuse: None Lives with: Family Family History: Reviewed & Not Pertinent, Arthritis, CAD, Hyperlipidemia, Hypertension, Malignancy Patient has suicidal ideation: No Patient has homicidal ideation: No - Past Medical History Cardiac Medical History: Reports: Hx Hypertension - high blood pressure while Neurological Medical History: Reports: Hx Migraine Endocrine Medical History: Reports: Hx Hyperthyroidism Renal/ Medical History: Denies: Hx Peritoneal Dialysis Musculoskeletal Medical History: Reports Hx Musculoskeletal Trauma Past Surgical History: Reports: Hx Section - x3, Hx Tonsillectomy, Hx Tubal Ligation - Immunizations Immunizations up to date: No Hx Diphtheria, Pertussis, Tetanus Vaccination: No Review of Systems - Review of Systems Constitutional: See HPI EENT: See HPI Cardiovascular: See HPI Respiratory: See HPI Gastrointestinal: No symptoms reported Genitourinary: No symptoms reported Female Genitourinary: No symptoms reported Musculoskeletal: No symptoms reported Skin: No symptoms reported Hematologic/Lymphatic: No symptoms reported Neurological/Psychological: No symptoms reported Physical Exam - Vital signs Vitals: Temp Pulse Resp BP Pulse Ox 98.9 F 83 16 121/76 99 09/23/19 20:05 09/23/19 20:05 09/23/19 20:05 09/23/19 20:05 09/23/19 20:05 - Notes Notes: GENERAL: Alert, interacts well. No acute distress. HEAD: Normocephalic, atraumatic. EYES: Pupils equal, round, and reactive to light. Extraocular movements intact. ENT: Oral mucosa moist, tongue midline. Oropharynx unremarkable. Airway patent. Minimal nasal congestion. LUNGS: Clear to auscultation bilaterally, no wheezes, rales, or rhonchi. No respiratory distress. Mild pleuritic pain with deep breaths. Otherwise unremarkable. HEART: Regular rate and rhythm. No murmur ABDOMEN: Soft, non-tender. Non-distended. EXTREMITIES: Moves all 4 extremities spontaneously. No edema, normal radial and dorsalis pedis pulses bilaterally. No cyanosis. BACK: no cervical, thoracic, lumbar midline tenderness. No saddle anesthesia, normal distal neurovascular exam. Moves all extremities in full range of motion. NEUROLOGICAL: Alert and oriented x3. Normal speech. Cranial nerves II through XII grossly intact. PSYCH: Normal affect, normal mood. SKIN: Warm, dry, normal turgor. No rashes or lesions noted. Course - Re-evaluation Re-evalutation: Patient with mild congestion, pain with deep breathing and intermittent, very atypical symptoms. Heart score is less than 3. Troponin negative despite being over 12 hours since symptoms began. D-dimer negative, EKG unremarkable, remaining work-up unremarkable, chest x-ray normal. Discussed with patient. She is very pleased with this work-up. I do suspect pleurisy which is mild based on her associated symptoms and her pleuritic pain. Discussed options. Treated with dexamethasone. Discussed follow-up and return precautions at length, referred to cardiology because of her family history for additional testing and close follow-up. Patient states appreciation and agreement. Stable at time of discharge. - Vital Signs Vital signs: Temp Pulse Resp BP Pulse Ox 98.5 F 83 20 124/76 100 09/23/19 23:01 09/23/19 20:05 09/23/19 23:01 09/23/19 23:01 09/23/19 23:01 - Laboratory Result Diagrams: 09/23/19 21:57 09/23/19 21:57 Laboratory results interpreted by me: 09/23/19 21:57 Hgb 11.2 L Hct 33.7 L - EKG Interpretation by Me Additional EKG results interpreted by me: EKG shows sinus rhythm at a rate of 80, QTc 406, normal axis. No T wave inversions or ST segment changes in consecutive leads. Small amount of artifact. Discharge - Discharge Clinical Impression: Sinus congestion Chest pain Qualifiers: Chest pain type: unspecified Qualified Code(s): R07.9 - Chest pain, unspecified Condition: Stable Disposition: HOME, SELF-CARE Additional Instructions: Your work-up at this time does not show any concerning findings. I suspect you have pleurisy, inflammation in the lining of your lungs, this is frequently viral. You may be developing a viral illness. You have been treated for this, rest, drink plenty of fluids, you can take [id number] medications for your symptoms in addition to this. Symptoms should simply resolve with time. Because of your family history you have been referred to cardiology for additional evaluation and management. Call the referral for close follow-up. Return if you worsen including spiking fever, passing out, difficulty breathing, severe worsening pain, or any other concerning symptoms. Forms: Return to Work Referrals: RADHA CABALLERO MD [ACTIVE STAFF] - 09/25/19
[2019-09-23] MEDS ORDERED: ASPIRIN 325 MG TABLET PO ONE (21:28)
[2019-09-23 22:15] LABS: ABSOLUTE BASOPHILS # (AUTO) 0.1 10^3/uL (0.0-0.2); ABSOLUTE EOSINOPHILS # (AUTO) 0.2 10^3/uL (0.0-0.6); ABSOLUTE LYMPHOCYTES (AUTO) 1.8 10^3/uL (0.5-4.7); ABSOLUTE MONOCYTES (AUTO) 0.4 10^3/uL (0.1-1.4); ABSOLUTE NEUT (AUTO) 2.8 10^3/uL (1.7-8.2); BASOPHILS % (AUTO) 1.1 % (0-2); EOSINOPHILS % (AUTO) 3.9 % (0-6); HEMATOCRIT 33.7 % (36.0-47.0); HEMOGLOBIN 11.2 g/dL (12.0-15.5); MEAN CORPUSCULAR HEMOGLOBIN 28.1 pg (27.0-33.4); MEAN CORPUSCULAR HGB CONC 33.3 g/dL (32.0-36.0); MEAN CORPUSCULAR VOLUME 85 fl (80-97); MONOCYTES % (AUTO) 7.9 % (3-13); PLATELET COUNT 267 10^3/uL (150-450); RED BLOOD COUNT 3.99 10^6/uL (3.72-5.28); RED CELL DISTRIBUTION WIDTH 13.9 % (11.5-14.0); SEGMENTED NEUTROPHILS % (AUTO) 53.1 % (42-78); TOTAL CELLS COUNTED % (AUTO) 100 %; WHITE BLOOD COUNT 5.3 10^3/uL (4.0-10.5)
[2019-09-23 22:34] LABS: ALBUMIN 3.9 g/dL (3.5-5.0); ALKALINE PHOSPHATASE 47 U/L (38-126); ANION GAP 9 (5-19); ASPARTATE AMINO TRANSFERASE 20 U/L (14-36); BILIRUBIN,DIRECT 0.3 mg/dL (0.0-0.4); BILIRUBIN,TOTAL 0.4 mg/dL (0.2-1.3); BLOOD UREA NITROGEN 16 mg/dL (7-20); CALCIUM 9.1 mg/dL (8.4-10.2); CARBON DIOXIDE 25 mmol/L (22-30); CHLORIDE 104 mmol/L (98-107); GLUCOSE 101 mg/dL (75-110); POTASSIUM 3.7 mmol/L (3.6-5.0); TOTAL PROTEIN 7.1 g/dL (6.3-8.2)
[2019-09-23] MEDS ORDERED: DEXAMETHASONE SOD PHOS INJ 10 MG/1 ML VIAL IM ONE (22:57)
[2019-09-23 23:22] VITALS: BP 124/76
--- NOTE | 2019-09-24 12:04 | EKG REPORT ---
SEVERITY:- NORMAL ECG - SINUS RHYTHM : Confirmed by: Zahra Zaragoza 24-Sep-2019 12:04:20
== END 2019-09-23 23:28 | disposition home or self-care (01) ==
LOC: ER 19:55
DX: R09.81 Nasal congestion (principal); R07.9 Chest pain, unspecified; Z88.6 Allergy status to analgesic agent; Z98.51 Tubal ligation status
CPT/HCPCS: 93005; 99284; 96372; 36415; 85025; 80053; 84484; 85379; 71046; 93010; J1100

== ENCOUNTER 2019-11-26 18:23 | Emergency (ER) | payer BC ==
[2019-11-26] MEDS ORDERED: GUAIFENESIN 600 MG TABLET.SA PO ONE (19:40)
--- NOTE | 2019-11-26 19:45 | ER Document Report ---
ED Headache - General Chief Complaint: Headache Stated Complaint: HEADACHE Time Seen by Provider: 11/26/19 18:37 Primary Care Provider: [facility] [Provider Group] - Follow up as needed [facility] [Provider Group] - Follow up as needed [facility] [Provider Group] - Follow up as needed GINO ANTUNEZ MD [NO LOCAL MD] - Follow up as needed CARLOS LAINEZ MD [ACTIVE STAFF] - Follow up as needed KLARISSA BAILEY MD [ACTIVE STAFF] - Follow up as needed Mode of Arrival: Ambulatory Information source: Patient Notes: 39-year-old patient presented to ED for complaint intermittent headache x2 weeks. Patient states light and sound do not make her headache worse with certain smells. She states she does get lightheaded at times. She states she is not nauseated vomiting fever cough or respiratory signs and symptoms. She has not been drinking as much water because of her increasing stress at work. She denies neurological symptoms. TRAVEL OUTSIDE OF THE [place] IN LAST 30 DAYS: No - HPI Patient complains to provider of: Headache Patient reports: Hx chronic headaches Onset: Other - 2 weeks Onset was: Other - Intermittent Timing: Still present Quality of pain: Achy Severity: Moderate Pain Level: 3 Associated symptoms: Other - Headache Exacerbated by: Other - Smell Similar symptoms previously: Yes Recently seen / treated by doctor: No - Related Data Allergies/Adverse Reactions: acetaminophen [From NyQuil] Allergy (Intermediate, Verified 09/23/19 20:15) brompheniramine maleate [From DayQuil Allergy 12-HR] Allergy (Intermediate, Verified 09/23/19 20:15) dextromethorphan HBr [From NyQuil] Allergy (Intermediate, Verified 09/23/19 20:15) doxylamine [From NyQuil] Allergy (Intermediate, Verified 09/23/19 20:15) ibuprofen [Ibuprofen] Allergy (Intermediate, Verified 09/23/19 20:15) phenylpropanolamine HCl [From DayQuil Allergy 12-HR] Allergy (Intermediate, Verified 09/23/19 20:15) pseudoephedrine HCl [From NyQuil] Allergy (Intermediate, Verified 09/23/19 20:15) Past Medical History - General Information source: Patient - Social History Smoking Status: Never Smoker Chew tobacco use (# tins/day): No Frequency of alcohol use: Occasional Drug Abuse: None Lives with: Family Family History: Reviewed & Not Pertinent, Arthritis, CAD, Hyperlipidemia, Hypertension, Malignancy Patient has homicidal ideation: No - Past Medical History Cardiac Medical History: Reports: Hx Hypertension - high blood pressure while Pulmonary Medical History: Reports: None EENT Medical History: Reports: None Neurological Medical History: Reports: Hx Migraine Endocrine Medical History: Reports: Hx Hyperthyroidism Renal/ Medical History: Reports: None Malignancy Medical History: Reports: None GI Medical History: Reports: None Musculoskeletal Medical History: Reports Hx Musculoskeletal Trauma Skin Medical History: Reports None Psychiatric Medical History: Reports: None Traumatic Medical History: Reports: None Infectious Medical History: Reports: None Past Surgical History: Reports: Hx Section - x3, Hx Tonsillectomy, Hx Tubal Ligation - Immunizations Immunizations up to date: No Hx Diphtheria, Pertussis, Tetanus Vaccination: No Review of Systems - Review of Systems Constitutional: No symptoms reported EENT: No symptoms reported Cardiovascular: No symptoms reported Respiratory: No symptoms reported Gastrointestinal: No symptoms reported Genitourinary: No symptoms reported Female Genitourinary: No symptoms reported Musculoskeletal: No symptoms reported Skin: No symptoms reported Hematologic/Lymphatic: No symptoms reported Neurological/Psychological: Headaches -: Yes All other systems reviewed and negative Physical Exam - Vital signs Vitals: Temp 98.8 F 11/26/19 18:34 Interpretation: Normal - General General appearance: Appears well, Alert - HEENT Head: Normocephalic, Atraumatic Eyes: Normal Pupils: PERRL Ears: Normal External canal: Normal Sinus: Normal Nasal: Purulent discharge, Swelling Mouth/Lips: Normal Mucous membranes: Normal Pharynx: Post nasal drainage Neck: Normal - Respiratory Respiratory status: No respiratory distress Chest status: Nontender Breath sounds: Normal Chest palpation: Normal - Cardiovascular Rhythm: Regular Heart sounds: Normal auscultation Murmur: No - Abdominal Inspection: Normal Distension: No distension Bowel sounds: Normal Tenderness: Nontender Organomegaly: No organomegaly - Back Back: Normal, Nontender - Extremities General upper extremity: Normal inspection, Nontender, Normal color, Normal ROM, Normal temperature General lower extremity: Normal inspection, Nontender, Normal color, Normal ROM, Normal temperature, Normal weight bearing. 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 She does have tenderness to the left sinuses. She does not have a fever does not have any signs of bacterial sinusitis but she does have symptoms of a viral illness. I have treated her with Tylenol and Mucinex as she states she can take Tylenol even though it says she is allergic to it. I have also given her prescription for Fioricet for her headaches. Patient verbalized understanding and agreement with treatment plan and patient was discharged home. - Vital Signs Vital signs: Temp Pulse Resp BP Pulse Ox 98.6 F 77 18 138/72 H 97 11/26/19 20:43 11/26/19 20:43 11/26/19 20:43 11/26/19 20:43 11/26/19 20:43 Discharge - Discharge Clinical Impression: URI (upper respiratory infection) Qualifiers: URI type: unspecified URI Qualified Code(s): J06.9 - Acute upper respiratory infection, unspecified Headache Qualifiers: Headache type: unspecified Headache chronicity pattern: unspecified pattern Intractability: not intractable Qualified Code(s): R51 - Headache Condition: Stable Disposition: HOME, SELF-CARE Additional Instructions: UPPER RESPIRATORY ILLNESS: You have a viral infection of the respiratory passages -- a "cold." This common infection causes nasal congestion, drainage, and often sore throat and cough. It is highly contagious. The disease usually lasts about 10 to 14 days. There is no "cure" for the viral infection -- it must run its course. If there is a complication, such as bacterial infection in the nose, sinuses, middle ear, or bronchial tubes, antibiotics may be required. The antibiotics won't affect the virus. Drink plenty of fluids. A humidifier may help. An expectorant medication or decongestant may make you more comfortable. Use acetaminophen or ibuprofen for fever or aches. See the doctor if fever persists over two days, if there is any significant worsening of your symptoms, or if you simply fail to improve as expected. Headache The physician does not feel that the headache you are experiencing has a serious underlying cause. Most headaches are due to emotional stress, with resultant muscle tension (tension headache). Occasionally, headaches are secondary to changes in the blood vessels of the scalp (vascular headache and migraine headache). Sometimes, a headache is the first symptom of another developing illness, such as a viral infection. You have no evidence of stroke, bleeding, meningitis, or other serious cause of your headache. The treatment of headaches varies with the severity and cause of the pain. Not all headaches need pain shots. In fact, there is evidence that using narcotics for headaches may make them worse in the long run. The physician will determine the therapy that's in your best interest. If you develop a fever, if the headache is different from any you've previously experienced, or if the headache progressively worsens, then call your physician at once or go to the emergency room. Given you a prescription for Fioricet for your headaches. If your cold treatment does not relieve your headache please use the Fioricet as prescribed. You need to follow-up with your primary care and or a neurologist for your headaches to get preventative treatment. You have been recommended treatment with Tylenol and Mucinex 600 mg. These are all duvf-tir-uaaobca medications for cough cold congestion. You could also use Flonase which is kwyl-vhq-ycfzqil 1 spray each nostril twice a day. You could also use salt soda solution gargles. These will help to remove the drainage from the back your throat. Chloraseptic spray was [id number]-[id number] that will also help with your sore throat. Salt and soda solution gargle 1 quart of water 1 tablespoon of salt 1 teaspoon of baking soda Mixed 3 ingredients together and boil for 1 minute Placed in a covered quart jar Use 1/2 ounce of cold solution to gargle 3 times a day USE OF ACETAMINOPHEN (Tylenol): Acetaminophen may be taken for pain relief or fever control. It's much safer than aspirin, offering a wider range of "safe" dosages. It is safe during . Some brand names are Tylenol, Panadol, Datril, Anacin 3, Tempra, and Liquiprin. Acetaminophen can be repeated every four hours. The following are maximum recommended dosages: >89 pounds or adults 650 mg to 900 mg Acetaminophen can be repeated every four hours. Maximum dose not to exceed 4000 mg a day. FOLLOW-UP CARE: If you have been referred to a physician for follow-up care, call the physicians office for an appointment as you were instructed or within the next two days. If you experience worsening or a significant change in your symptoms, notify the physician immediately or return to the Emergency Department at any time for re-evaluation. Prescriptions: Butalb/Acetaminophen/Caffeine [Fioricet (50-325-40 mg) Tablet] 1 tab PO Q6HP PRN #20 tab PRN Reason: Forms: Elevated Blood Pressure, Return to Work Referrals: [facility] [Provider Group] - Follow up as needed [facility] [Provider Group] - Follow up as needed [facility] [Provider Group] - Follow up as needed KLARISSA BAILEY MD [ACTIVE STAFF] - Follow up as needed CARLOS LAINEZ MD [ACTIVE STAFF] - Follow up as needed GINO ANTUNEZ MD [NO LOCAL MD] - Follow up as needed
[2019-11-26 20:44] VITALS: BP 138/72
== END 2019-11-26 20:44 | disposition home or self-care (01) ==
LOC: ER 18:23
DX: J06.9 Acute upper respiratory infection, unspecified (principal); R51 Headache; Z88.8 Allergy status to other drugs, medicaments and biological substances; I10 Essential (primary) hypertension
CPT/HCPCS: 99283

== ENCOUNTER → 2020-06-08 | Outpatient (CLI) | payer BC, MEDICAID ==
--- NOTE | 2020-06-08 16:55 | RADIOLOGY REPORT (SQ) ---
EXAM DESCRIPTION: U/S NON OB PEL TV W/DOPPLER IMAGES COMPLETED DATE/TIME: 06/08/2020 4:47 pm REASON FOR STUDY: (N92.0)EXCESSIVE AND FREQUENT MENSTRUATION WITH REGULAR CYCLE N92.0 EXCESSIVE AND FREQUENT MENSTRUATION WITH REGULAR CYCLE COMPARISON: None. TECHNIQUE: Dynamic and static grayscale images acquired of the pelvis via transvaginal approach and recorded on PACS. Additional selected color Doppler and spectral images recorded. LIMITATIONS: None. FINDINGS: UTERUS: Contour normal. No mass. ENDOMETRIAL STRIPE: No focal or generalized thickening. No masses. CERVIX: No nabothian cysts. RIGHT OVARY AND DOPPLER: Normal size. No worrisome masses. Normal arterial vascular flow without evid ence for torsion. LEFT OVARY AND DOPPLER: Normal size. No worrisome masses. Normal arterial vascular flow without evide nce for torsion. FREE FLUID: None noted. OTHER: No other significant finding. MEASUREMENTS: UTERUS: 8.6 x 5.2 x 5.2 cm ENDOMETRIAL STRIPE: 6.0 mm. RIGHT OVARY: 3.3 x 2.1 x 1.7 cm. LEFT OVARY: 3.7 x 2.2 x 2.8 cm. IMPRESSION: NORMAL TRANSVAGINAL PELVIC ULTRASOUND. TECHNICAL DOCUMENTATION: JOB ID: [id number] 2010 [employer]- All Rights Reserved Rev Reading location - IP/workstation name: [email or web address]
== END ==
LOC: RAD 16:20
PROVIDERS: ATTEND Physician Assistant
DX: N92.0 Excessive and frequent menstruation with regular cycle (principal)
CPT/HCPCS: 76830; 93976